=== PATIENT | male | born 1950 | race Two or more races ===

== ENCOUNTER 2020-03-06 17:39 | Inpatient (IN) | payer MEDICAID ==
[~2020-03-06] VITALS: Ht 190.5 cm; Wt 59.9 kg
[2020-03-06] MEDS ORDERED: ONDANSETRON HCL 4MG/2ML INJ IV STA (18:26)
[2020-03-06] MEDS ORDERED: MORPHINE SULFATE 4 MG/ML CPJ (NOT FOR IM USE) IV STA (18:26)
[2020-03-06] MEDS ORDERED: SODIUM CHLORIDE 0.9% 1,000 ML IV ONE (18:26)
[2020-03-06] MEDS ORDERED: PERMETHRIN 5% CREAM 60GM TOP ONE (18:30)
[2020-03-06 18:50] LABS: HEMATOCRIT. 36.5 % (42.0-52.0); HEMOGLOBIN. 12.4 g/dL (14.0-18.0); MEAN CORPUSCULAR HEMOGLOBIN 29.9 pg (28.0-32.0); MEAN CORPUSCULAR VOLUME 88.3 fL (80.0-94.0); MEAN PLATELET VOLUME 6.9 fl (7.4-10.4); PLATELET 281 x1000/uL (130-400); RED BLOOD CELL COUNT 4.13 mill/uL (4.7-6.1)
[2020-03-06 18:59] LABS: CHLORIDE 95 mEq/L (98-107)
[2020-03-06 19:48] LABS: PLATELET ESTIMATE NORMAL
[2020-03-06 21:28] LABS: CLARITY URINE CLEAR (CLEAR); COLOR URINE DARK YELLOW (YELLOW); KETONES URINE NEGATIVE (NEGATIVE); LEUKOCYTE ESTERASE URINE TRACE (NEGATIVE); NITRITE URINE NEGATIVE (NEGATIVE); OCCULT BLOOD URINE NEGATIVE (NEGATIVE); PROTEIN URINE 1+ (NEGATIVE)
[2020-03-06] MEDS ORDERED: MORPHINE SULFATE 2 MG/ML CPJ (NOT FOR IM USE) IV PRN (21:30)
[2020-03-06] MEDS ORDERED: ONDANSETRON HCL 4MG/2ML INJ IV PRN (21:30)
[2020-03-06] MEDS ORDERED: ACETAMINOPHEN 325MG TABLET PO PRN (21:30)
[2020-03-06] MEDS ORDERED: LEVOFLOXACIN 750MG PREMIX 150 ML IV ONE (22:00)
[2020-03-06] MEDS: SODIUM CHLORIDE 0.9% 1,000 ML IV SCH (23:18)
[2020-03-07] MEDS: CLONIDINE 0.1MG TABLET PO PRN ×3 (05:58→15:55)
[2020-03-07 06:05] LABS: PHOSPHORUS 5.5 mg/dL (2.5-4.9)
[2020-03-07 06:10] LABS: HEMATOCRIT. 33.9 % (42.0-52.0); HEMOGLOBIN. 11.5 g/dL (14.0-18.0); MEAN CORPUSCULAR HEMOGLOBIN 30.1 pg (28.0-32.0); MEAN CORPUSCULAR VOLUME 89.1 fL (80.0-94.0); MEAN PLATELET VOLUME 7.4 fl (7.4-10.4); PLATELET 231 x1000/uL (130-400); RED BLOOD CELL COUNT 3.81 mill/uL (4.7-6.1); RED CELL DISTRIBUTION WIDTH 15.1 % (11.6-14.6)
[2020-03-07 07:08] LABS: PLATELET ESTIMATE NORMAL
[2020-03-07] MEDS: SODIUM CHLORIDE 0.9% 1,000 ML IV SCH ×2 (07:30→15:39)
[2020-03-07 08:51] LABS: *AMPHETAMINES SCREEN URINE NEGATIVE (NEGATIVE); *BARBITURATES SCREEN URINE NEGATIVE (NEGATIVE); *BENZODIAZEPINES SCREEN URINE NEGATIVE (NEGATIVE); *COCAINE SCREEN URINE PRESUMTIVE POSITIVE (NEGATIVE); METHADONE URINE SCREEN PRESUMTIVE POSITIVE (NEGATIVE)
[2020-03-07 08:52] LABS: CANNABINOID URINE SCREEN NEGATIVE (NEGATIVE); OPIATES URINE SCREEN PRESUMTIVE POSITIVE (NEGATIVE); PHENCYCLIDINE URINE SCREEN NEGATIVE (NEGATIVE)
[2020-03-07] MEDS: ENOXAPARIN 30MG/0.3ML SYR SUBCUT SCH (10:00)
[2020-03-07] MEDS: HYDROCODONE/APAP 7.5/325MG 1 TAB TABLET PO PRN (10:24)
[2020-03-07 14:30] VITALS: BP_SYST 156; BP_SYST 168; BP_DIAS 96
[2020-03-07 16:29] VITALS: BP 148/78
[2020-03-07] MEDS ORDERED: PIPERONYL/PYRETHRINS (RID)120 ML SHAMPOO TOP NR ×2 (18:00→20:00)
[2020-03-07 19:30] LABS: INR 1.1; PARTIAL THROMBOPLASTIN TIME 26.4 sec (23.4-31.0); PROTHROMBIN TIME 12.4 sec (9.6-11.0)
[2020-03-07 20:00] VITALS: BP 142/76
[2020-03-07 20:01] LABS: HEPATITIS B SURFACE ANTIGEN NEGATIVE
[2020-03-07 20:30] LABS: HEPATITIS A AB IGM NEGATIVE (NEGATIVE)
[2020-03-08] VITALS (8 sets, daily range): BP systolic 125–158; BP diastolic 72–99
[2020-03-08] MEDS: SODIUM CHLORIDE 0.9% 1,000 ML IV SCH ×2 (03:30→13:30)
[2020-03-08] MEDS: HYDROCODONE/APAP 7.5/325MG 1 TAB TABLET PO PRN ×2 (09:11→17:47)
[2020-03-08] MEDS: ENOXAPARIN 30MG/0.3ML SYR SUBCUT SCH (09:12)
[2020-03-08] MEDS ORDERED: POTASSIUM CHLORIDE 20MEQ TABLET SR PO NR (09:30)
[2020-03-08] MEDS ORDERED: LIDOCAINE HCL/EPINEPHRINE 1%-EPI 1:100,000 20 ML VIAL ONE (14:01)
[2020-03-08] MEDS ORDERED: SODIUM BICARBONATE 4% (2.4MEQ) 5ML VIAL IV ONE (14:01)
[2020-03-09 08:00] VITALS: BP_SYST 141; BP_SYST 161; BP_DIAS 91; BP_DIAS 95
[2020-03-09] MEDS: CLONIDINE 0.1MG TABLET PO PRN (09:18)
[2020-03-09] MEDS: ENOXAPARIN 40MG/0.4ML SYR SUBCUT SCH (09:18)
[2020-03-09] MEDS: SODIUM CHLORIDE 0.9% 1,000 ML IV SCH (09:21)
[2020-03-09 12:00] VITALS: BP 141/95
[2020-03-09] MEDS ORDERED: AMLO5TAB88 MT (14:18)
[2020-03-09 16:00] VITALS: BP 141/95
[2020-03-09] MEDS: HYDROCODONE/APAP 7.5/325MG 1 TAB TABLET PO PRN ×11 (18:39→21:26)
[2020-03-09 20:00] VITALS: BP 142/92
[2020-03-10] VITALS (9 sets, daily range): BP systolic 121–156; BP diastolic 60–104
[2020-03-10] MEDS: ENOXAPARIN 40MG/0.4ML SYR SUBCUT SCH (08:49)
[2020-03-10] MEDS: HYDROCODONE/APAP 7.5/325MG 1 TAB TABLET PO PRN ×2 (08:50→14:23)
[2020-03-10] MEDS: SODIUM CHLORIDE 0.9% 1,000 ML IV SCH (16:25)
[2020-03-11] VITALS: BP 167/68
[2020-03-11] MEDS: HYDROCODONE/APAP 7.5/325MG 1 TAB TABLET PO PRN ×5 (01:32→22:44)
[2020-03-11 04:00] VITALS: BP 119/78
[2020-03-11 08:00] VITALS: BP 153/83
[2020-03-11] MEDS: ENOXAPARIN 40MG/0.4ML SYR SUBCUT SCH (08:39)
[2020-03-11] MEDS: SODIUM CHLORIDE 0.9% 1,000 ML IV SCH (11:30)
[2020-03-11 11:42] VITALS: BP 133/76
[2020-03-11 16:00] VITALS: BP 154/80
[2020-03-11 20:00] VITALS: BP 156/75
[2020-03-12] VITALS: BP 153/81
[2020-03-12] MEDS: HYDROCODONE/APAP 7.5/325MG 1 TAB TABLET PO PRN ×3 (03:04→20:58)
[2020-03-12 04:00] VITALS: BP 142/83
[2020-03-12] MEDS: SODIUM CHLORIDE 0.9% 1,000 ML IV SCH ×2 (07:40→17:23)
[2020-03-12 08:00] VITALS: BP 153/89
[2020-03-12] MEDS: ENOXAPARIN 40MG/0.4ML SYR SUBCUT SCH (08:42)
[2020-03-12] MEDS: SUCRALFATE 1 G/10 ML UDC PO SCH ×2 (11:18→17:55)
[2020-03-12] MEDS: PANTOPRAZOLE 40MG DR TABLET PO SCH ×2 (11:18→20:48)
[2020-03-12 12:00] VITALS: BP 158/97
[2020-03-12] MEDS: METHADONE HCL 10MG TABLET PO SCH (13:04)
[2020-03-12] MEDS: AMLODIPINE 5MG TABLET PO SCH ×2 (13:40→20:48)
[2020-03-12 16:00] VITALS: BP 132/66
[2020-03-12 20:00] VITALS: BP 152/81
[2020-03-13] VITALS: BP 154/92
[2020-03-13] MEDS: SUCRALFATE 1 G/10 ML UDC PO SCH ×5 (00:21→23:50)
[2020-03-13 04:00] VITALS: BP 152/59
[2020-03-13] MEDS: HYDROCODONE/APAP 7.5/325MG 1 TAB TABLET PO PRN ×3 (05:14→23:24)
[2020-03-13] MEDS: SODIUM CHLORIDE 0.9% 1,000 ML IV SCH ×2 (05:57→13:53)
[2020-03-13] MEDS: PANTOPRAZOLE 40MG DR TABLET PO SCH ×2 (06:20→21:33)
[2020-03-13 06:41] LABS: HEMATOCRIT. 37.7 % (42.0-52.0); HEMOGLOBIN. 12.7 g/dL (14.0-18.0); MEAN CORPUSCULAR HEMOGLOBIN 29.9 pg (28.0-32.0); MEAN CORPUSCULAR VOLUME 88.9 fL (80.0-94.0); MEAN PLATELET VOLUME 8.3 fl (7.4-10.4); PLATELET 204 x1000/uL (130-400); RED BLOOD CELL COUNT 4.25 mill/uL (4.7-6.1); RED CELL DISTRIBUTION WIDTH 15.4 % (11.6-14.6)
[2020-03-13 06:42] LABS: INR 1.1; PARTIAL THROMBOPLASTIN TIME 26.4 sec (23.4-31.0); PROTHROMBIN TIME 11.6 sec (9.6-11.0)
[2020-03-13 08:01] LABS: CHLORIDE 96 mEq/L (98-107)
[2020-03-13 08:26] LABS: PHOSPHORUS 5.1 mg/dL (2.5-4.9)
[2020-03-13] MEDS: AMLODIPINE 5MG TABLET PO SCH ×2 (08:49→21:33)
[2020-03-13] MEDS: ENOXAPARIN 40MG/0.4ML SYR SUBCUT SCH (08:49)
[2020-03-13] MEDS: METHADONE HCL 10MG TABLET PO SCH (08:50)
[2020-03-13 09:23] LABS: PLATELET ESTIMATE NORMAL
[2020-03-13] MEDS ORDERED: SODIUM POLYSTYRENE SULFONATE 15 G/60 ML BOT PO NR (12:00)
[2020-03-13] MEDS: LEVOFLOXACIN 500MG PREMIX 100 ML IV SCH (13:48)
[2020-03-13] MEDS ORDERED: MIDAZOLAM HCL 5 MG/5 ML VIAL ONE (17:34)
[2020-03-13] MEDS ORDERED: FENTANYL CITRATE/PF 50MCG/ML 2ML VIAL ONE (17:34)
[2020-03-13] MEDS ORDERED: MIDAZOLAM HCL 5 MG/5 ML VIAL IV PRN (17:37)
[2020-03-13] MEDS ORDERED: FENTANYL CITRATE/PF 50MCG/ML 2ML VIAL IV PRN (17:38)
[2020-03-13 20:00] VITALS: BP 140/102
[2020-03-14] VITALS: BP 107/57
[2020-03-14 04:00] VITALS: BP 152/74
[2020-03-14 06:22] LABS: HEMATOCRIT. 35.5 % (42.0-52.0); HEMOGLOBIN. 12.3 g/dL (14.0-18.0); MEAN CORPUSCULAR HEMOGLOBIN 30.4 pg (28.0-32.0); MEAN CORPUSCULAR VOLUME 87.3 fL (80.0-94.0); MEAN PLATELET VOLUME 8.9 fl (7.4-10.4); PLATELET 177 x1000/uL (130-400); RED BLOOD CELL COUNT 4.06 mill/uL (4.7-6.1); RED CELL DISTRIBUTION WIDTH 15.6 % (11.6-14.6)
[2020-03-14] MEDS: SUCRALFATE 1 G/10 ML UDC PO SCH ×3 (06:59→18:28)
[2020-03-14] MEDS: PANTOPRAZOLE 40MG DR TABLET PO SCH ×2 (07:01→20:25)
[2020-03-14 07:10] LABS: CHLORIDE 99 mEq/L (98-107)
[2020-03-14 08:00] VITALS: BP 161/85
[2020-03-14] MEDS: AMLODIPINE 5MG TABLET PO SCH ×2 (09:33→20:25)
[2020-03-14] MEDS: METHADONE HCL 10MG TABLET PO SCH (09:36)
[2020-03-14] MEDS: ENOXAPARIN 40MG/0.4ML SYR SUBCUT SCH (09:37)
[2020-03-14 12:00] VITALS: BP 118/64
[2020-03-14 12:19] LABS: PLATELET ESTIMATE NORMAL
[2020-03-14] MEDS: LEVOFLOXACIN 500MG PREMIX 100 ML IV SCH (12:48)
[2020-03-14] MEDS ORDERED: PIPERONYL/PYRETHRINS (RID)120 ML SHAMPOO TOP NR ×2 (13:00→14:00)
[2020-03-14 16:00] VITALS: BP 125/68
[2020-03-14 20:00] VITALS: BP 135/85
[2020-03-14] MEDS: SODIUM CHLORIDE 0.9% 1,000 ML IV SCH (20:02)
[2020-03-14] MEDS: HYDRALAZINE HCL 50MG TABLET PO SCH (20:25)
[2020-03-15 00:22] VITALS: BP 135/83
[2020-03-15] MEDS: SUCRALFATE 1 G/10 ML UDC PO SCH ×5 (00:35→23:24)
[2020-03-15 04:00] VITALS: BP 121/81
[2020-03-15] MEDS: SODIUM CHLORIDE 0.9% 1,000 ML IV SCH ×2 (05:30→15:30)
[2020-03-15] MEDS: PANTOPRAZOLE 40MG DR TABLET PO SCH ×2 (06:21→22:10)
[2020-03-15 07:35] LABS: HEMATOCRIT. 35.8 % (42.0-52.0); HEMOGLOBIN. 12.1 g/dL (14.0-18.0); MEAN CORPUSCULAR HEMOGLOBIN 29.8 pg (28.0-32.0); MEAN CORPUSCULAR VOLUME 87.7 fL (80.0-94.0); MEAN PLATELET VOLUME 8.8 fl (7.4-10.4); PLATELET 141 x1000/uL (130-400); RED BLOOD CELL COUNT 4.08 mill/uL (4.7-6.1); RED CELL DISTRIBUTION WIDTH 15.5 % (11.6-14.6)
[2020-03-15 07:56] LABS: CHLORIDE 101 mEq/L (98-107)
[2020-03-15 09:41] LABS: NUCLEATED RED BLOOD CELLS 1 /100 WBC; PLATELET ESTIMATE NORMAL
[2020-03-15] MEDS: ENOXAPARIN 40MG/0.4ML SYR SUBCUT SCH (09:41)
[2020-03-15] MEDS: METHADONE HCL 10MG TABLET PO SCH (09:45)
[2020-03-15] MEDS: AMLODIPINE 5MG TABLET PO SCH ×2 (09:46→22:10)
[2020-03-15] MEDS: HYDRALAZINE HCL 50MG TABLET PO SCH ×2 (09:46→22:10)
[2020-03-15] MEDS: LEVOFLOXACIN 500MG PREMIX 100 ML IV SCH (12:36)
[2020-03-15] MEDS ORDERED: HYDR-4135 PO (14:19)
[2020-03-15] MEDS ORDERED: OMEP40CA12 MT (14:19)
[2020-03-15 20:00] VITALS: BP 136/86
[2020-03-15] MEDS: HYDROCODONE/APAP 7.5/325MG 1 TAB TABLET PO PRN (22:11)
[2020-03-16] VITALS: BP 119/81
[2020-03-16] MEDS: SODIUM CHLORIDE 0.9% 1,000 ML IV SCH ×3 (02:00→21:06)
[2020-03-16 04:00] VITALS: BP 129/72
[2020-03-16] MEDS: SUCRALFATE 1 G/10 ML UDC PO SCH ×4 (06:30→23:34)
[2020-03-16] MEDS: PANTOPRAZOLE 40MG DR TABLET PO SCH ×2 (06:30→21:06)
[2020-03-16 06:44] LABS: CHLORIDE 104 mEq/L (98-107)
[2020-03-16 08:00] VITALS: BP 112/70
[2020-03-16] MEDS: HYDRALAZINE HCL 50MG TABLET PO SCH ×2 (08:31→21:00)
[2020-03-16] MEDS: AMLODIPINE 5MG TABLET PO SCH ×2 (08:31→21:00)
[2020-03-16] MEDS: METHADONE HCL 10MG TABLET PO SCH (08:31)
[2020-03-16] MEDS: ENOXAPARIN 40MG/0.4ML SYR SUBCUT SCH (09:00)
[2020-03-16] MEDS ORDERED: LIDOCAINE HCL 1% 20ML VIAL (Pyxis) INJ ONE (11:45)
[2020-03-16] MEDS ORDERED: SODIUM BICARBONATE 4% (2.4MEQ) 5ML VIAL IV ONE (11:46)
[2020-03-16 12:00] VITALS: BP 106/68
[2020-03-16 16:00] VITALS: BP 92/66
[2020-03-16 20:00] VITALS: BP 83/55
[2020-03-17] VITALS (13 sets, daily range): BP systolic 89–141; BP diastolic 35–105
[2020-03-17] MEDS: PANTOPRAZOLE 40MG DR TABLET PO SCH (06:36)
[2020-03-17] MEDS: SUCRALFATE 1 G/10 ML UDC PO SCH ×3 (06:37→17:49)
[2020-03-17] MEDS: SODIUM CHLORIDE 0.9% 1,000 ML IV SCH ×2 (06:45→16:08)
[2020-03-17] MEDS ORDERED: SODIUM CHLORIDE 0.9% 500 ML IV ONE (07:30)
[2020-03-17] MEDS: AMLODIPINE 5MG TABLET PO SCH ×2 (09:00→10:26)
[2020-03-17] MEDS: HYDRALAZINE HCL 50MG TABLET PO SCH ×2 (09:00→10:26)
[2020-03-17] MEDS: ENOXAPARIN 40MG/0.4ML SYR SUBCUT SCH (09:55)
[2020-03-17] MEDS: METHADONE HCL 10MG TABLET PO SCH (10:18)
[2020-03-17] MEDS: LEVOFLOXACIN 500MG TABLET PO SCH ×2 (11:31→11:32)
[2020-03-17] MEDS ORDERED: ALBUMIN HUMAN 25GM/500ML (5%) IV NR (13:00)
[2020-03-17] MEDS: DOPAMINE 400MG/250ML PREMIX 250 ML IV SCH (15:04)
[2020-03-17] MEDS ORDERED: DEXTROSE 50% WATER 50ML SYRINGE IV NR (17:00)
[2020-03-17 17:09] LABS: HEMATOCRIT. 36.7 % (42.0-52.0); HEMOGLOBIN. 12.6 g/dL (14.0-18.0); MEAN CORPUSCULAR HEMOGLOBIN 30.2 pg (28.0-32.0); MEAN CORPUSCULAR VOLUME 87.9 fL (80.0-94.0); RED BLOOD CELL COUNT 4.17 mill/uL (4.7-6.1); RED CELL DISTRIBUTION WIDTH 16.9 % (11.6-14.6)
[2020-03-17 17:11] LABS: CHLORIDE 107 mEq/L (98-107)
[2020-03-17 17:46] LABS: BG BASE EXCESS -7.3 mmol/L (-2.0-2.0); BG CARBOXYHEMOGLOBIN 0.3 % (0.5-1.5); BG DEOXYHEMOGLOBIN 7.3 % (0.0-5.0); BG FRACTION INSPIRED OXYGEN 52; BG HCO3 ACT 19.4 mmol/L (22.0-26.0); BG METHEMOGLOBIN 0.3 % (0.0-1.5); BG OXYGEN SATURATION 92.7 % (92.0-98.5); BG OXYHEMOGLOBIN 92.1 % (94.0-97.0); BG PCO2 44.1 mmHg (35.0-45.0); BG PH 7.262 (7.350-7.450); BG SAMPLE SITE RIGHT FEMORAL; BG TOTAL HEMOGLOBIN 10.9 g/dL (12.0-18.0); BG VENT MODE MASK - SIMPLE
[2020-03-17] MEDS: DEXT 5%/0.45% NACL 1000ML 1,000 ML IV SCH (17:48)
[2020-03-17] MEDS ORDERED: VANCOMYCIN 1250MG in DEXTROSE 5% WATER 250ML IV NR (20:00)
[2020-03-17] MEDS: TAMSULOSIN HCL 0.4MG SR CAPSULE PO SCH (20:15)
[2020-03-17] MEDS ORDERED: PERMETHRIN 5% CREAM 60GM TOP NR (21:00)
[2020-03-17] MEDS: BLOOD SUGAR DIAGNOSTIC STRIP TEST SCH (21:00)
[2020-03-17] MEDS ORDERED: PIPERACILLIN/TAZOBACTAM 3.375 G/VIAL IV SCH (22:00)
[2020-03-17 22:16] LABS: NUCLEATED RED BLOOD CELLS 1 /100 WBC
[2020-03-17 22:18] LABS: PLATELET ESTIMATE DECREASED
[2020-03-17 22:19] LABS: MEAN PLATELET VOLUME 8.7 fl (7.4-10.4); PLATELET 75 x1000/uL (130-400)
[2020-03-18] VITALS (28 sets, daily range): BP systolic 106–158; BP diastolic 39–89
[2020-03-18] MEDS: PANTOPRAZOLE 40MG DR TABLET PO SCH ×3 (00:08→20:52)
[2020-03-18] MEDS: PIPERACILLIN/TAZOBACTAM 3.375 G in DEXT 5% WATER 100 ML IV SCH ×2 (01:13→06:29)
[2020-03-18] MEDS: SUCRALFATE 1 G/10 ML UDC PO SCH ×4 (01:15→18:00)
[2020-03-18] MEDS ORDERED: VANCOMYCIN 1 G PREMIX 200 ML IV SCH ×3 (04:00→18:00)
[2020-03-18] MEDS: DEXT 5%/0.45% NACL 1000ML 1,000 ML IV SCH ×2 (04:05→15:08)
[2020-03-18] MEDS: BLOOD SUGAR DIAGNOSTIC STRIP TEST SCH ×5 (05:57→21:29)
[2020-03-18 08:54] LABS: HEMOGLOBIN 11.4 g/dL (14.0-18.0); MEAN CORPUSCULAR HEMOGLOBIN 30.1 pg (28.0-32.0); MEAN CORPUSCULAR VOLUME 89.7 fL (80.0-94.0); PLATELET 56 x1000/uL (130-400); RED BLOOD CELL COUNT 3.78 mill/uL (4.7-6.1); RED CELL DISTRIBUTION WIDTH 16.7 % (11.6-14.6)
[2020-03-18] MEDS: TAMSULOSIN HCL 0.4MG SR CAPSULE PO SCH (09:00)
[2020-03-18 09:09] LABS: CHLORIDE 105 mEq/L (98-107)
[2020-03-18] MEDS: DOPAMINE 400MG/250ML PREMIX 250 ML IV SCH ×2 (14:00→22:22)
[2020-03-18 14:21] LABS: BG CARBOXYHEMOGLOBIN 0.3 % (0.5-1.5); BG DEOXYHEMOGLOBIN 22.7 % (0.0-5.0); BG FRACTION INSPIRED OXYGEN 60; BG HCO3 ACT 13.3 mmol/L (22.0-26.0); BG METHEMOGLOBIN 0.3 % (0.0-1.5); BG OXYGEN SATURATION 77.2 % (92.0-98.5); BG OXYHEMOGLOBIN 76.7 % (94.0-97.0); BG PCO2 31.8 mmHg (35.0-45.0); BG PH 7.238 (7.350-7.450); BG PO2 46.4 mmHg (75.0-100.0); BG SAMPLE SITE RIGHT RADIAL; BG TOTAL HEMOGLOBIN 11.2 g/dL (12.0-18.0); BG VENT MODE MASK - SIMPLE
[2020-03-18] MEDS ORDERED: LIDOCAINE HCL 1% 20ML VIAL (Pyxis) INJ ONE (14:53)
[2020-03-18] MEDS ORDERED: SODIUM BICARBONATE 8.4% MEQ/ML 50ML VIAL IV SCH (15:00)
[2020-03-18] MEDS: CEFEPIME 1,000 MG in DEXTROSE 5% WATER 50 ML IV SCH ×2 (15:06→21:03)
[2020-03-18 16:30] LABS: BG BASE EXCESS -12.7 mmol/L (-2.0-2.0); BG CARBOXYHEMOGLOBIN 0.3 % (0.5-1.5); BG FRACTION INSPIRED OXYGEN 100; BG HCO3 ACT 14.1 mmol/L (22.0-26.0); BG METHEMOGLOBIN 0.3 % (0.0-1.5); BG OXYGEN SATURATION 81.9 % (92.0-98.5); BG OXYHEMOGLOBIN 81.4 % (94.0-97.0); BG PCO2 35.6 mmHg (35.0-45.0); BG PH 7.216 (7.350-7.450); BG PO2 55.4 mmHg (75.0-100.0); BG SAMPLE SITE LEFT RADIAL; BG TOTAL HEMOGLOBIN 10.9 g/dL (12.0-18.0); BG VENT MODE MASK - NRB
[2020-03-18] MEDS ORDERED: PROPOFOL 10MG/ML 100ML 100 ML IV PRN (16:45)
[2020-03-18] MEDS ORDERED: ETOMIDATE 2MG/ML 10ML VIAL IV ONE (17:15)
[2020-03-18] MEDS ORDERED: VECURONIUM BROMIDE 10 MG/VIAL IV ONE (17:15)
[2020-03-18] MEDS ORDERED: VANCOMYCIN 1,000 MG in DEXT 5% WATER 250 ML IV SCH (18:00)
[2020-03-18 18:20] LABS: BG BASE EXCESS -11.8 mmol/L (-2.0-2.0); BG CARBOXYHEMOGLOBIN 0.3 % (0.5-1.5); BG FRACTION INSPIRED OXYGEN 100; BG HCO3 ACT 14.9 mmol/L (22.0-26.0); BG OXYHEMOGLOBIN 94.7 % (94.0-97.0); BG PCO2 36.8 mmHg (35.0-45.0); BG PH 7.226 (7.350-7.450); BG PO2 89.2 mmHg (75.0-100.0); BG SAMPLE SITE LEFT RADIAL; BG TIDAL VOLUME(mL) 450 mL; BG TOTAL HEMOGLOBIN 10.8 g/dL (12.0-18.0); BG VENT MODE VENT - A/C; BG VENT RATE 18 set
[2020-03-18] MEDS: NOREPINEPHRINE 8 MG in DEXT 5% WATER 492 ML IV PRN (18:23)
[2020-03-18] MEDS ORDERED: SODIUM BICARBONATE 8.4% 1 MEQ/ML 50ML SYR IV NR (19:00)
[2020-03-18 19:15] LABS: T4 FREE 0.7 ng/dL (0.76-1.46)
[2020-03-18 19:47] LABS: VITAMIN B12 SERUM >2000 pg/mL pg/mL (211-911)
[2020-03-18] MEDS ORDERED: SODIUM BICARBONATE 100 MEQ in DEXTROSE 5% WATER 1,000 ML IV SCH (20:00)
[2020-03-18] MEDS: IPRATROPIUM/ALBUTEROL 0.5-3(2.5)MG/3ML NEB HHN SCH (20:24)
[2020-03-19] VITALS (74 sets, daily range): BP systolic 54–227; BP diastolic 23–71
[2020-03-19] MEDS: SUCRALFATE 1 G/10 ML UDC PO SCH ×3 (00:45→12:15)
[2020-03-19] MEDS: IPRATROPIUM/ALBUTEROL 0.5-3(2.5)MG/3ML NEB HHN SCH ×3 (01:10→13:20)
[2020-03-19] MEDS: NOREPINEPHRINE 8 MG in DEXT 5% WATER 492 ML IV PRN ×3 (03:13→12:19)
[2020-03-19] MEDS: PHENYLEPHRINE 80 MG in DEXT 5% WATER 492 ML IV PRN ×2 (03:24→10:16)
[2020-03-19] MEDS: VASOPRESSIN 10 UNIT in SODIUM CHLORIDE 0.9% 99.5 ML IV PRN ×2 (04:37→13:25)
[2020-03-19] MEDS: BLOOD SUGAR DIAGNOSTIC STRIP TEST SCH ×2 (07:50→12:45)
[2020-03-19] MEDS: CEFEPIME 1,000 MG in DEXTROSE 5% WATER 50 ML IV SCH (08:26)
[2020-03-19] MEDS: TAMSULOSIN HCL 0.4MG SR CAPSULE PO SCH (08:27)
[2020-03-19] MEDS: PANTOPRAZOLE 40MG DR TABLET PO SCH (08:27)
[2020-03-19 09:35] LABS: BG BASE EXCESS -22.5 mmol/L (-2.0-2.0); BG CARBOXYHEMOGLOBIN 0.3 % (0.5-1.5); BG DEOXYHEMOGLOBIN 28.4 % (0.0-5.0); BG FRACTION INSPIRED OXYGEN 100; BG HCO3 ACT 9.7 mmol/L (22.0-26.0); BG METHEMOGLOBIN 0.2 % (0.0-1.5); BG OXYGEN SATURATION 71.5 % (92.0-98.5); BG OXYHEMOGLOBIN 71.1 % (94.0-97.0); BG PCO2 51.3 mmHg (35.0-45.0); BG PH 6.893 (7.350-7.450); BG PO2 51.2 mmHg (75.0-100.0); BG SAMPLE SITE LEFT RADIAL; BG TIDAL VOLUME(mL) 450 mL; BG TOTAL HEMOGLOBIN 9.5 g/dL (12.0-18.0); BG VENT MODE VENT - A/C; BG VENT RATE 20 set
[2020-03-19 09:50] LABS: HEMATOCRIT. 23.9 % (42.0-52.0); HEMOGLOBIN. 7.5 g/dL (14.0-18.0); MEAN CORPUSCULAR VOLUME 95.4 fL (80.0-94.0); MEAN PLATELET VOLUME 10.1 fl (7.4-10.4); RED CELL DISTRIBUTION WIDTH 17.8 % (11.6-14.6)
[2020-03-19] MEDS ORDERED: SODIUM BICARBONATE 8.4% 1 MEQ/ML 50ML SYR IV ONE ×2 (09:58→13:32)
[2020-03-19] MEDS ORDERED: SODIUM BICARBONATE 8.4% 1 MEQ/ML 50ML SYR IV NR ×2 (10:00→13:30)
[2020-03-19] MEDS ORDERED: EPINEPHRINE 1 MG in SODIUM CHLORIDE 0.9% 249 ML IV PRN (10:00)
[2020-03-19 10:14] LABS: BG BASE EXCESS -14.8 mmol/L (-2.0-2.0); BG CARBOXYHEMOGLOBIN 0.3 % (0.5-1.5); BG FRACTION INSPIRED OXYGEN 100; BG HCO3 ACT 15.2 mmol/L (22.0-26.0); BG METHEMOGLOBIN 0.4 % (0.0-1.5); BG OXYHEMOGLOBIN 95.3 % (94.0-97.0); BG PCO2 60.5 mmHg (35.0-45.0); BG PH 7.019 (7.350-7.450); BG SAMPLE SITE LEFT RADIAL; BG TIDAL VOLUME(mL) 450 mL; BG TOTAL HEMOGLOBIN 7.3 g/dL (12.0-18.0); BG VENT MODE VENT - A/C; BG VENT RATE 24 set
[2020-03-19] MEDS ORDERED: CALCIUM GLUCONATE 100MG/ML 10ML VIAL IV NR ×2 (11:00→18:00)
[2020-03-19] MEDS ORDERED: SODIUM BICARBONATE 150 MEQ in DEXTROSE 5% WATER 1,000 ML IV SCH (11:00)
[2020-03-19 11:24] LABS: NUCLEATED RED BLOOD CELLS 40 /100 WBC; PLATELET ESTIMATE MARKEDLY DECREASED
[2020-03-19 11:26] LABS: PLATELET 46 x1000/uL (130-400)
[2020-03-19] MEDS ORDERED: VANCOMYCIN 1 G PREMIX 200 ML IV SCH ×2 (12:00→15:00)
[2020-03-19 13:08] LABS: BG BASE EXCESS -23.7 mmol/L (-2.0-2.0); BG CARBOXYHEMOGLOBIN 0.3 % (0.5-1.5); BG DEOXYHEMOGLOBIN 28.5 % (0.0-5.0); BG METHEMOGLOBIN 0.3 % (0.0-1.5); BG OXYGEN SATURATION 71.3 % (92.0-98.5); BG OXYHEMOGLOBIN 70.9 % (94.0-97.0); BG PCO2 56.8 mmHg (35.0-45.0); BG PO2 51.8 mmHg (75.0-100.0); BG SAMPLE SITE LEFT RADIAL; BG TIDAL VOLUME(mL) 450 mL; BG TOTAL HEMOGLOBIN 7.6 g/dL (12.0-18.0); BG VENT MODE VENT - A/C; BG VENT RATE 24 set
[2020-03-19] MEDS: DEXTROSE 50% WATER 50ML SYRINGE IV PRN (14:39)
[2020-03-19 15:16] LABS: BG BASE EXCESS -23.6 mmol/L (-2.0-2.0); BG CARBOXYHEMOGLOBIN 0.3 % (0.5-1.5); BG DEOXYHEMOGLOBIN 33.8 % (0.0-5.0); BG HCO3 ACT 8.1 mmol/L (22.0-26.0); BG METHEMOGLOBIN 0.3 % (0.0-1.5); BG OXYHEMOGLOBIN 65.6 % (94.0-97.0); BG PCO2 45.4 mmHg (35.0-45.0); BG PH 6.869 (7.350-7.450); BG PO2 45.5 mmHg (75.0-100.0); BG SAMPLE SITE LEFT RADIAL; BG TIDAL VOLUME(mL) 450 mL; BG VENT MODE VENT - A/C; BG VENT RATE 30 set
[2020-03-19] MEDS ORDERED: DOPAMINE HCL 400 MG in DEXT 5% WATER 240 ML IV SCH (15:30)
[2020-03-19] MEDS ORDERED: DEXT 10% WATER 1,000 ML IV SCH (15:30)
[2020-03-19] MEDS ORDERED: CALCIUM GLUCONATE 1,000 MG in DEXT 5% WATER 90 ML IV NR (18:00)
[2020-03-20 05:10] LABS: HIV SCREEN 4G Non Reactive (Non Reactive)
== END 2020-03-19 17:37 | disposition expired | DRG 720 ==
LOC: ER 17:39 → 6WST 20:50 → EDBEDREQ 03-07 01:12 → ENRESERV 03-07 13:00 → 6EST 03-10 15:35 → 3WST 03-17 14:36 → CVICU 03-18 17:27
PROVIDERS: ADMIT Internal Medicine Nephrology; ATTEND Internal Medicine Nephrology
PROC: 0W9G3ZZ Drainage of Peritoneal Cavity, Percutaneous Approach (ICD-10-PCS; 2020-03-08)
PROC: 0DB68ZX Excision of Stomach, Via Natural or Artificial Opening Endoscopic, Diagnostic (ICD-10-PCS; 2020-03-13)
PROC: 0W9G3ZZ Drainage of Peritoneal Cavity, Percutaneous Approach (ICD-10-PCS; 2020-03-16)
PROC: 0BH17EZ Insertion of Endotracheal Airway into Trachea, Via Natural or Artificial Opening (ICD-10-PCS; principal; 2020-03-18)
PROC: 5A1945Z Respiratory Ventilation, 24-96 Consecutive Hours (ICD-10-PCS; 2020-03-18)
PROC: 02HV33Z Insertion of Infusion Device into Superior Vena Cava, Percutaneous Approach (ICD-10-PCS; 2020-03-18)
PROC: B548ZZA Ultrasonography of Superior Vena Cava, Guidance (ICD-10-PCS; 2020-03-18)
PROC: B5181ZA Fluoroscopy of Superior Vena Cava using Low Osmolar Contrast, Guidance (ICD-10-PCS; 2020-03-18)
PROC: 5A12012 Performance of Cardiac Output, Single, Manual (ICD-10-PCS; 2020-03-19)
PROC: 5A12012 Performance of Cardiac Output, Single, Manual (ICD-10-PCS; 2020-03-19)
DX: A41.9 Sepsis, unspecified organism (principal); N17.0 Acute kidney failure with tubular necrosis; J96.01 Acute respiratory failure with hypoxia; I46.9 Cardiac arrest, cause unspecified; E43 Unspecified severe protein-calorie malnutrition; D61.818 Other pancytopenia; R65.21 Severe sepsis with septic shock; J18.9 Pneumonia, unspecified organism; E87.4 Mixed disorder of acid-base balance; G92 Toxic encephalopathy; E87.1 Hypo-osmolality and hyponatremia; F11.20 Opioid dependence, uncomplicated; E87.8 Other disorders of electrolyte and fluid balance, not elsewhere classified; R18.8 Other ascites; B85.2 Pediculosis, unspecified; F14.10 Cocaine abuse, uncomplicated; B19.20 Unspecified viral hepatitis C without hepatic coma; J44.0 Chronic obstructive pulmonary disease with (acute) lower respiratory infection; J44.1 Chronic obstructive pulmonary disease with (acute) exacerbation; N18.9 Chronic kidney disease, unspecified; E16.2 Hypoglycemia, unspecified; E87.5 Hyperkalemia; R00.1 Bradycardia, unspecified; K44.9 Diaphragmatic hernia without obstruction or gangrene; K80.50 Calculus of bile duct without cholangitis or cholecystitis without obstruction; B18.2 Chronic viral hepatitis C; K29.71 Gastritis, unspecified, with bleeding; Z20.828 Contact with and (suspected) exposure to other viral communicable diseases; Z60.2 Problems related to living alone; I12.9 Hypertensive chronic kidney disease with stage 1 through stage 4 chronic kidney disease, or unspecified chronic kidney disease; L89.629 Pressure ulcer of left heel, unspecified stage; L89.619 Pressure ulcer of right heel, unspecified stage; Z87.891 Personal history of nicotine dependence; Z71.51 Drug abuse counseling and surveillance of drug abuser
CPT/HCPCS: 36415; 36573; 36600; 49083; 71045; 74176; 76705; 80048; 80053; 80076; 80202; 80305; 81003; 82105; 82140; 82248; 82375; 82378; 82607; 82746; 82805; 82962; 83036; 83735; 84100; 84132; 84145; 84153; 84439; 84443; 84478; 84481; 84484; 85025; 85027; 86705; 86709; 86803; 87015; 87045; 87340; 87389; 87427; 87449; 87493; 87635; 88108; 88305; 88312; 88313; 93005; 93306; 94003; 94640; 99285; C1725; J0610; J0692; J1265; J1650; J1956; J2250; J2270; J2370; J2405; J2543; J3010; J3370; J3490; J7030; J7050; J7060; J7070; P9041; G0103